=== PATIENT | male | born 1940 | race Caucasian/White ===

== ENCOUNTER → 2016-12-24 | Outpatient (CLI) | payer OTHER ==
[~2016-12-24] MED LIST: ASPIRIN EC81 M1 PO; LORTAB 7.5-5001 TAB PO; LOSARTAN POTASS50 MG PO; METOPROLOL SUCC50 MG PO; PHENERGAN25 M1 DOB; TRIAMTERENE-HCT1 TA7 PO
--- NOTE | ~2016-12-24 | MR32 ---
[facility] A Service of [facility] & [facility] RADIOLOGY TEXT RESULTS PATIENT: JENNIFER ROJO LOCATION: [facility] : 42 UNIT #: [id number] AGE: [address]: Jhonny Garrido MD SEX: M ORDER DR: [id number] [address] [address] [id number] O MR#: [id number] Acc #: [id number] NAME: JENNIFER ROJO. : 1940 SEX: M STUDY DATE/TIME: 12/24/2016 12:01 UNIT: [facility] ROOM: STUDY DESCRIPTION: MR Cervical Wo Contrast Attending Physician: Jhonny Garrido M.D. Referring Physician: Jhonny Garrido M.D. Ordering Physician: Johnny Garrido M.D. Primary Care Physician: Jhonny Garrido M.D. MRI CENTER REPORT This report is preliminary unless electronic signature is present. EXAM MRI of the cervical spine without contrast dated 12/24/2016. COMPARISON Painful cervical spine dated 11/06/2016. HISTORY Increasing neck pain with crepitus. Right-sided radiculopathy which involves the right upper extremity for the last 3 months. FINDINGS Multisequence, multiplanar imaging of the cervical spine was obtained without contrast. Disc osteophyte complex are noted at multiple levels. C1-2: Tiny amount of fluid is noted in bilateral lateral masses. C2-3: Disc osteophyte complex which is slightly prominent in the center. Severe right and mild left facet hypertrophic changes are noted with severe right neural foraminal narrowing. C3-4: Disc osteophyte complex which is prominent in the center. There is borderline size to mild canal stenosis. Severe right facet hypertrophic change is noted with severe superior right neural foraminal narrowing with more patency of the foramen inferiorly. C4-5: Disc osteophyte complex with [id number] canal stenosis. There are edematous changes associated with the right side endplates, right Severe facet hypertrophic changes and adjacent soft tissue around the right facet joint. Tiny amount of fluid is also noted within the joint space. mild left facet hypertrophic change, severe superior right neural foraminal narrowing with relatively more patent inferior aspect is seen. [facility] A Service of [facility] & [facility] RADIOLOGY TEXT RESULTS PATIENT: JENNIFER ROJO LOCATION: [facility] : 42 UNIT #: [id number] AGE: [address]: Jhonny Garrido MD SEX: M ORDER DR: C5-6: Disc osteophyte complex which is asymmetrically prominent in the central to left subarticular region. Bilateral uncinate spurs are noted, worse on the left. There is severe left neural foraminal narrowing with severe canal stenosis and cord flattening without obvious cord signal change yet. Mild bilateral facet changes are present. C6-7: Disc osteophyte complex with mild bilateral facet changes, moderate to severe left neural foraminal narrowing with moderate canal stenosis. C7-T1: Mild disc bulge with [id number] right and mild left facet hypertrophic change. No canal stenosis or neural foraminal narrowing. There is mild left-sided apical pleural fluid. IMPRESSION 1. 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 2. Multilevel neural foraminal narrowing are noted of varying degrees. Refer above. 3. There is severe right facet hypertrophic change in C4-5 with tiny amount of joint fluid, associated edema in the articulating process of the facet and adjacent soft tissue. Though it could be related to degenerative arthritis, septic arthritis is next in the differential consideration. No obvious end plate of erosions could be clearly seen in the current MRI. There are also mild edematous changes in the endplates along the posterior aspect of C4-5 with canal stenosis and right neural foraminal narrowing. Dictated by... Liam Rosa M.D. THIS IS AN ELECTRONICALLY VERIFIED REPORT Liam Rosa M.D. at 12/26/2016 10:37 AM CPR/bd TD: 12/25/2016 15:23 JOB #: [id number] MRI CENTER REPORT Page 1 of 1
== END | disposition home or self-care (01) ==
LOC: SMRI 11:25
DX: R60.0 Localized edema (principal); M48.02 Spinal stenosis, cervical region
CPT/HCPCS: 72141